=== PATIENT | male | born 1935 ===

== ENCOUNTER 2017-06-15 10:54 | Inpatient (IN) | payer OTHER ==
[~2017-06-15] VITALS: Ht 185.4 cm; Wt 105.2 kg
[2017-06-15] MEDS ORDERED: ALTACE10 MG PO (11:51)
[2017-06-15] MEDS ORDERED: FENOFIBRATE160 MG PO (11:52)
[2017-06-15] MEDS ORDERED: ATENOLOL50 MG PO (11:52)
[2017-06-15] MEDS ORDERED: GEMFIBROZIL600 MG PO (11:52)
[2017-06-15] MEDS ORDERED: FORTAMET1000 MG PO (11:53)
[2017-06-15] MEDS ORDERED: JANUMET XR 1001 EACH PO (11:53)
[2017-06-15] MEDS ORDERED: GLIPIZIDE10 MG PO (11:53)
[2017-06-15] MEDS ORDERED: NEURONTIN300 MG PO (11:54)
[2017-06-15] MEDS ORDERED: TAMSULOSIN HCL0.4 MG PO (11:54)
[2017-06-15] MEDS ORDERED: FINASTERIDE5 MG PO (11:54)
[2017-06-15] MEDS ORDERED: [UNRECOGNIZED DRUG - OTHER] PO (11:55)
== END 2017-06-23 16:14 | disposition home or self-care (01) | DRG 330 ==
LOC: O/R 06-21 08:22 → SURH 06-21 08:22
PROVIDERS: Colon & Rectal Surgery
PROC: 07TC4ZZ Resection of Pelvis Lymphatic, Percutaneous Endoscopic Approach (ICD-10-PCS; 2017-06-21)
PROC: 3E0F7GC Introduction of Other Therapeutic Substance into Respiratory Tract, Via Natural or Artificial Opening (ICD-10-PCS; 2017-06-21)
PROC: 0DTN4ZZ Resection of Sigmoid Colon, Percutaneous Endoscopic Approach (ICD-10-PCS; principal; 2017-06-21 12:15)
DX: C19 Malignant neoplasm of rectosigmoid junction (principal); C18.6 Malignant neoplasm of descending colon; I10 Essential (primary) hypertension; N40.0 Benign prostatic hyperplasia without lower urinary tract symptoms